=== PATIENT | male | born 1960 | race Caucasian/White ===

== ENCOUNTER 2021-06-22 14:22 | Emergency (ER) | payer SELFPAY ==
[~2021-06-22] VITALS: Ht 177.8 cm; Wt 76.7 kg
[2021-06-22 14:38] VITALS: BP 154/79
--- NOTE | 2021-06-22 19:00 | NUR ---
not in lobby
--- NOTE | 2021-06-22 19:15 | NUR ---
not in lobby
--- NOTE | 2021-06-22 19:30 | NUR ---
not in lobby
== END 2021-06-22 21:48 | disposition left against medical advice (07) ==
LOC: ER 14:24
DX: R06.02 Shortness of breath (principal); Z53.21 Procedure and treatment not carried out due to patient leaving prior to being seen by health care provider
CPT/HCPCS: 71046; 99283